=== PATIENT | female | born 1970 | race Caucasian/White ===

== ENCOUNTER 2022-01-20 21:39 | Emergency (ER) | payer MEDICARE, OTHER, SELFPAY ==
[2022-01-20 21:53] VITALS: BP 202/99; PULSE 76; RESP 18; TEMP 36.9; O2SAT 100; BMI 16.2
--- NOTE | 2022-01-20 21:59 | ECG_ITS ---
APPROVED REPORT Exam: Resting ECG HR:61 bpm ECG Measurements Heart Rate 61 AXES WY 210 P 74 QRSd 86 QRS 65 QT 378 T 91 QTc 382 Conclusion SINUS RHYTHM WITH FIRST DEGREE AV BLOCK ABNORMAL ECG UNCONFIRMED REPORT Electronically signed by : Roly Savage MD 01/21/2022 13:48:27
[2022-01-20 22:00] VITALS: BP 191/109
--- NOTE | 2022-01-20 22:03 | XR_ITS ---
PROCEDURE INFORMATION: Exam: XR Chest Exam date and time: 01/20/2022 10:00 PM Age: 51 years old Clinical indication: Chest wall pain; Additional info: Chest pain TECHNIQUE: Imaging protocol: Radiologic exam of the chest. Views: 2 views. COMPARISON: No relevant prior studies available. FINDINGS: Lungs: Emphysema. No consolidation. Pleural spaces: Unremarkable. No pleural effusion. No pneumothorax. Heart/Mediastinum: Unremarkable. No cardiomegaly. Bones/joints: Unremarkable. IMPRESSION: No acute findings.
[2022-01-20 22:22] LABS: Basophils % 0.6 % (0.1-2.0); Eosinophils # 0.2 K/mm3 (0.0-0.4); Hematocrit 30.3 % (37.0-47.0); Hemoglobin 9.4 g/dL (12.2-16.2); Lymphocytes # 2.2 K/mm3 (0.7-4.5); Lymphocytes % 40.2 % (10-50); Mean Corpuscular HGB Conc 31.1 g/dL (31.8-35.4); Mean Corpuscular Hemoglobin 28.3 pg (27.0-31.2); Mean Corpuscular Volume 90.9 fl (81-99); Mean Platelet Volume 9.2 fl (7.4-10.4); Monocytes # 0.2 K/mm3 (0.1-1.0); Monocytes % 3.6 % (1.7-9.3); Neutrophils # 2.9 K/mm3 (1.8-7.8); Neutrophils % 52.6 % (37.0-80.0); Platelet Count 183 K/mm3 (142-424); Red Blood Count 3.33 M/mm3 (4.20-5.40); Red Cell Distribution Width 18.2 % (11.5-17.5); White Blood Count 5.5 K/mm3 (4.8-10.8)
[2022-01-20 22:24] VITALS: BP 182/89; PULSE 68; RESP 17; O2SAT 99
[2022-01-20 22:27] LABS: Anion Gap 11.7 mEq/L (5-15); Blood Urea Nitrogen 10 mg/dl (7-17); Calcium 9.1 mg/dl (8.4-10.2); Carbon Dioxide 26 mmol/L (22.0-30.0); Chloride 98 mmol/L (98-107); Creatinine Clearance Estimated 65 mL/min (50-200); Estimated Glomerular Filt Rate 88 ml/min (>60); GFR (African American) 107 ML/MIN (>60); Glucose 96 mg/dl (74-100); Potassium 3.7 mmoL/L (3.5-5.1); Sodium 132 mmol/L (136-145)
--- NOTE | 2022-01-20 22:28 | CT_ITS ---
PROCEDURE INFORMATION: Exam: CTA Chest With Contrast Exam date and time: 01/20/2022 10:41 PM Age: 51 years old Clinical indication: Pain; On breathing; Additional info: Chest pain with inspiration TECHNIQUE: Imaging protocol: Computed tomographic angiography of the chest with contrast. 3D rendering (Not supervised by radiologist): MIP and/or 3D reconstructed images were created by the technologist. Radiation optimization: All CT scans at this facility use at least one of these dose optimization techniques: automated exposure control; mA and/or kV adjustment per patient size (includes targeted exams where dose is matched to clinical indication); or iterative reconstruction. Contrast material: ISOVUE 370; Contrast volume: 75 ml; Contrast route: INTRAVENOUS (IV); COMPARISON: CR XR CHEST 2V 01/20/2022 10:00 PM FINDINGS: Pulmonary arteries: Normal. No pulmonary emboli. Aorta: Unremarkable. No aortic aneurysm. No aortic dissection. Lungs: Biapical scarring. Emphysema. No pneumonia. Pleural spaces: Unremarkable. No pneumothorax. No pleural effusion. Heart: Unremarkable. No cardiomegaly. No pericardial effusion. Lymph nodes: Unremarkable. No enlarged lymph nodes. Bones/joints: Unremarkable. No acute fracture. Soft tissues: Unremarkable. IMPRESSION: No acute findings.
--- NOTE | 2022-01-20 22:28 | HMH.EDGENADL ---
Discharge Plan Disposition Chief Complaint: PAIN Prescriptions Prescriptions: No Action buprenorphine-naloxone 8-2 mg film 1 film sublingual BID Referrals Follow up/Referrals: Morgan Amor MD [Primary Care Provider] - See instructions Clinical Impressions Clinical Impression: Pleurisy, COVID-19 Instructions Patient Instructions: DI for COVID-19 (Suspected or Confirmed ) Discharge ED Provider: Catarino Christianson General Adult HPI General Chief complaint: PAIN Stated complaint: covid + week ago,upper back pain,hurts in lungs Time Seen by Provider: 01/20/22 22:28 Mode of Arrival: Ambulatory Source of Information: Patient and Medical Record Limitations: No Limitations Description of Symptoms (Recalled from ER Triage Doc. by RN): PT REPORTS HAVING COVID 1 WEEK AGO. PT STATES WHEN SHE COUGHS, TAKES A DEEP BREATH OR MOVES HER CHEST AND BACK HURT IN HER LUNGS . PT REPORTS HX OF COPD, CHRONIC BRONCHITIS AND ASTHMA History of Present Illness HPI narrative: recent covid-19 and now with back pain worse with insp - no rash or trauma Onset (ago): day(s) Location: chest and back Radiation: non-radiation Severity: moderate Quality: sharp Consistency: intermittent Associated symptoms: denies other symptoms Treatments prior to arrival: NSAID Related Data Home Medications Medication Instructions Recorded Confirmed buprenorphine 8 mg-naloxone 2 mg 1 film sublingual BID TAKING TO 01/20/22 01/20/22 sublingual film GET CLEAN. Allergies Allergy/AdvReac Type Severity Reaction Status Date / Time cephalexin [From Keflex] Allergy Verified 01/20/22 21:59 [facility] Medical History (Updated 01/20/22 @ 23:37 by Catarino Christianson MD) Asthma Bronchitis Chronic cough COPD (chronic obstructive pulmonary disease) Social History Smoking Status: Current every day smoker alcohol intake: never current occupational status: unemployed Travel in the last 8 weeks: None ROS Obtained: Yes All systems reviewed & no additional complaints except as documented Physical Exam General General appearance: in no apparent distress Head Head exam: normocephalic Eye Eye exam: Present PERRL and EOMI ENT ENT exam: Present mucous membranes moist Neck Neck exam: Present trachea midline Chest Chest inspection: Absent symmetric chest wall rise Respiratory Respiratory exam: Present respiratory distress and other (rhonchi ) Cardiovascular Cardiovascular exam: Present regular rate and systolic murmur; Absent rubs Abdominal Exam Abdominal exam: Present soft Extremities Exam Extremities exam: Present normal capillary refill; Absent calf tenderness Back Exam Back exam: Absent CVA tenderness (R) or CVA tenderness (L) Neurological Exam Neurological exam: Present alert, oriented X3 and CN II-XII intact Psychiatric Psychiatric exam: Present normal affect Skin Skin exam: Absent rash Medical Decision Making Medical Records Medical records reviewed: Yes I reviewed the patient's medical records. Estuardo Inquiry Pt receiving controlled substance: No Vital Signs: 01/20/22 21:53 01/20/22 22:00 01/20/22 22:24 Temperature 98.5 F Temperature Source Oral Pulse Rate 68 Pulse Rate [Left Radial] 76 Respiratory Rate 18 17 Blood Pressure 191/109 H 182/89 H Blood Pressure [Right Arm] 202/99 H Blood Pressure Mean 123 120 Blood Pressure Mean [Right Arm] 133 Blood Pressure Source [Right Arm] Automatic Cuff Blood Pressure Position [Right Arm] Sitting 02 Sat by Pulse Oximetry 100 99 Oxygen Delivery Method Room Air 01/20/22 22:30 Temperature Temperature Source Pulse Rate 60 Pulse Rate [Left Radial] Respiratory Rate 17 Blood Pressure 167/77 H Blood Pressure [Right Arm] Blood Pressure Mean 124 Blood Pressure Mean [Right Arm] Blood Pressure Source [Right Arm] Blood Pressure Position [Right Arm] 02 Sat by Pulse Oximetry 97 Oxygen Delivery Method Lab Data Lab results reviewed:
[2022-01-20 22:30] VITALS: BP 167/77; PULSE 60; RESP 17; O2SAT 97
[2022-01-20 22:32] LABS: Influenza A, PCR Not Detected (NotDetected); Influenza B, PCR Not Detected (NotDetected)
[2022-01-20 22:33] LABS: C-Reactive Protein 13.3 mg/L (0-4); Lactic Acid 0.7 mmol/L (0.7-2.1)
[2022-01-20 22:44] LABS: Troponin I < 0.01 ng/ml (0.00-0.034)
[2022-01-20 22:46] LABS: Procalcitonin 0.046 ng/mL (0.0-2.0)
[2022-01-20 22:52] LABS: Erythrocyte Sedimentation Rate 131 mm/hr (0-30)
[2022-01-20 22:55] LABS: Coronavirus 19, PCR Detected (NotDetected)
--- NOTE | 2022-01-20 22:56 | PC.NURSE ---
MD AWARE OF POSITIVE COVID.
--- NOTE | 2022-01-20 23:18 | PC.NURSE ---
Pt asking when she can have something to drink. pt was informed when we get her scan results back we will be able to get her a drink
--- NOTE | 2022-01-20 23:21 | PC.NURSE ---
Pt given nate mist
--- NOTE | 2022-01-20 23:23 | PC.NURSE ---
PT AWARE THAT ALL LABS AND RADIOLOGY RESULTS ARE BACK AND MD IS AWARE. PT ALSO AWARE THAT MD MAY WANT TO KEEP HER FOR ADDITIONAL LAB WORK. AMADO.
[2022-01-20 23:41] VITALS: BP 162/71; PULSE 61; RESP 16; TEMP 36.6; O2SAT 97
== END 2022-01-20 23:43 | disposition home or self-care (01) ==
PROVIDERS: Emergency Provider Emergency Medicine; PCP Pediatrics
DX: U07.1 COVID-19 (principal); R09.1 Pleurisy; Z72.0 Tobacco use; J44.9 Chronic obstructive pulmonary disease, unspecified
CPT/HCPCS: 71046; 71275; 80048; 83605; 84145; 84484; 85025; 85651; 86140; 87040; 93005; 96365; 96375; 99285; C9803; Q9967; U0003; U0005